=== PATIENT | male | born 1980 | race Caucasian/White ===

== ENCOUNTER 2017-08-02 12:54 | Emergency (ER) | payer MEDICAID ==
--- NOTE | 2017-08-02 13:08 | EDPHY ---
HPI/HX/ROS/PE/MDM Narrative: CHIEF COMPLAINT: Scrotal pain HPI: The patient is a 36-year-old male with a history of methamphetamine abuse. Approximately 1 month ago he was hospitalized for approximately 2 weeks at a hospital in [place] for epididymitis, UTI. The patient states he did not undergo any surgical procedures but did receive extensive IV antibiotics. He was ultimately discharged on a 21 day course of level floxacillin which he states he completed. Over the last few days, the patient notes recurrence of pain and swelling of his left hemiscrotum. He denies dysuria, fever, rash. REVIEW OF SYSTEMS: Aside from elements discussed in the HPI, a comprehensive 10-point review of systems was reviewed and is negative. PMH: History of methamphetamine abuse, epididymitis SOCIAL HISTORY: Patient recently moved here from [place]. History of methamphetamine abuse. Denies alcohol abuse. PHYSICAL EXAM: General:Patient is alert, in no acute distress. ENT:Eyes are normal to inspection. ENT inspection normal. Neck: Normal inspection. Full range of motion. Respiratory:No respiratory distress. Breath sounds normal bilaterally. Cardiovascular: Regular rate and rhythm. Strong peripheral pulses. Normal cap refill. Abdomen:The abdomen is nontender to palpation. There are no peritoneal signs. There are normal bowel sounds. Back: Normal to inspection. No tenderness to palpation. : Penis is normal to inspection. The left hemiscrotum is markedly swollen, tender and indurated. There is no discharge or skin breakdown. Right hemiscrotum is normal to inspection. Skin: Normal color. No rash. Warm and dry. Extremities: Normal appearance. Full range of motion. Neuro: Oriented x3. Normal motor function. Normal sensory function. ED Course: 36-year-old male presents with scrotal pain and left hemiscrotum swelling. Symptoms consistent with a recurrence of epididymitis, for which he was treated one month ago. Plan for testicular US, laboratory studies including CBC, chemistries, UA. 13:[address] Rivera, radiologist. US reveals diffuse heterogeneity of testicle and epididymis, consistent with epididym-orchitis, with scrotal wall thickening. No abscess or torsion. Reviewed laboratory studies. WBC elevated at 13,000. UA negative for UTI or hematuria. Labs otherwise largely unremarkable. Plan to administer 1gm IV ceftriaxone and 750mg IV Levaquin. Reassessed patient. He is well-appearing at this time. Vitals are stable. Plan to discharge home in good condition with prescription for Levaquin. He will follow up with his PCP or urology. Return precautions discussed. He is comfortable with this plan. MDM: This patient presents with recurrent left-sided epididymito-orchitis. I received faxed records from the hospital in [place] he was admitted to last month ( [facility] in [place], [place]) and these indicate that the patient presented to the ED in either late May or early June with dysuria and testicle pain and was found to be septic, with a WBC of 30k. US was negative for abscess. Urine grew out E.coli and blood cultures were negative. The patient was initially treated with vancomycin and Zosyn, which was eventually narrowed down to levofloxacin and diflucan. There were concerns that patient may have been using IV for meth use in hospital. The patient's symptoms seem to indicate recurrence of this same process and again there is no fluid collection or abscess. He appears quite well, with normal vital signs and eating fast food in his ER bed on re-evaluation, so I do not think he requires admission to the hospital at this time. I will re-start PO Levaquin, and have consulted our bottle caser to ensure that the patient will be able to follow-up closely with a PCP and Urology who we will refer him to. Patient understands and agrees with this plan. - Data Points Imaging Results: Imaging Impressions Testicular Ultrasound 08/02/17 13:10 Impression: 1. Heterogeneous echotexture involving the left testicle as well as heterogeneous appearance of the epididymis and thickening of the scrotal wall. There is also some increased color flow enhancement of the epididymis on the left. Consider underlying infectious or inflammatory process most likely. Consider follow-up ultrasound after treatment to confirm resolution. 2. Normal-appearing right testicle, epididymis, and scrotal sac. Findings discussed with Levy Elizabeth MD at 13:56 hour, 08/02/2017. Imaging: Discussed imaging studies w/ call center support representative Radiologist Laboratory Results: Laboratory Results 08/02/17 13:20 08/02/17 13:20 08/02/17 08/02/17 08/02/17 13:20 13:20 13:10 WBC 13.06 10^3/uL H 10^3/uL (3.80-9.50) RBC 5.03 10^6/uL 10^6/uL (4.40-6.38) Hgb 14.3 g/dL g/dL (13.7-17.5) Hct 42.9 % % (40.0-51.0) MCV 85.3 fL fL (81.5-99.8) MCH 28.4 pg pg (27.9-34.1) MCHC 33.3 g/dL g/dL (32.4-36.7) RDW 13.6 % % (11.5-15.2) Plt Count 319 10^3/uL 10^3/uL (150-400) MPV 9.9 fL fL (8.7-11.7) Neut % (Auto) 66.7 % % (39.3-74.2) Lymph % (Auto) 21.1 % % (15.0-45.0) [place] % (Auto) 7.8 % % (4.5-13.0) Eos % (Auto) 3.4 % % (0.6-7.6) Baso % (Auto) 0.8 % % (0.3-1.7) Nucleat RBC Rel Count 0.0 % % (0.0-0.2) Absolute Neuts (auto) 8.72 10^3/uL H 10^3/uL (1.70-6.50) Absolute Lymphs (auto) 2.75 10^3/uL 10^3/uL (1.00-3.00) Absolute Monos (auto) 1.02 10^3/uL H 10^3/uL (0.30-0.80) Absolute Eos (auto) 0.44 10^3/uL H 10^3/uL (0.03-0.40) Absolute Basos (auto) 0.10 10^3/uL 10^3/uL (0.02-0.10) Absolute Nucleated RBC 0.00 10^3/uL 10^3/uL (0-0.01) Immature Gran % 0.2 % % (0.0-1.1) Immature Gran # 0.03 10^3/uL 10^3/uL (0.00-0.10) Sodium 138 mEq/L mEq/L (135-145) Potassium 4.8 mEq/L mEq/L (3.5-5.2) Chloride 105 mEq/L mEq/L (97-110) Carbon Dioxide 21 mEq/l L mEq/l (22-31) Anion Gap 12 mEq/L mEq/L (8-16) BUN 16 mg/dL mg/dL (7-23) Creatinine 0.8 mg/dL mg/dL (0.7-1.3) Estimated GFR > 60 Glucose 94 mg/dL mg/dL (70-100) Calcium 8.8 mg/dL mg/dL (8.5-10.4) Urine Color PALE YELLOW Urine Appearance CLEAR Urine pH 7.0 (5.0-7.5) Ur Specific [place] 1.006 (1.002-1.030) Urine Protein NEGATIVE (NEGATIVE) Urine Ketones NEGATIVE (NEGATIVE) Urine Blood NEGATIVE (NEGATIVE) Urine Nitrate NEGATIVE (NEGATIVE) Urine Bilirubin NEGATIVE (NEGATIVE) Urine Urobilinogen NEGATIVE EU EU (0.2-1.0) Ur Leukocyte Esterase NEGATIVE (NEGATIVE) Urine Glucose NEGATIVE (NEGATIVE) Medications Given: Discontinued Medications Ceftriaxone Sodium/Dextrose (Rocephin 1 Gm (Premix)) 50 mls @ 100 mls/hr IV EDNOW ONE PRN Reason: Protocol Stop: 08/02/17 14:30 Last Admin: 08/02/17 14:06 Dose: 50 mls Levofloxacin/Dextrose (Levaquin 750 Mg (Premix)) 150 mls @ 100 mls/hr IV EDNOW ONE PRN Reason: Protocol Stop: 08/02/17 15:30 Last Admin: 08/02/17 14:18 Dose: 150 mls General Time Seen by Provider: 08/02/17 13:01 Initial Vital Signs: Initial Vital Signs Temperature (C) 36.7 C 08/02/17 12:57 Heart Rate 78 08/02/17 12:57 Respiratory Rate 18 08/02/17 12:57 Blood Pressure 125/87 H 08/02/17 12:57 O2 Sat (%) 98 08/02/17 12:57 O2 Delivery Mode Room Air Allergies/Adverse Reactions: No Known Allergies Allergy (Unverified 08/02/17 12:56) Home Medications: Medication Instructions Recorded Fluconazole 08/02/17 Hydrocodone-Acetamin 5-325 mg 08/02/17 Levofloxacin 08/02/17 levOFLOXACIN [levAQUIN (*)] 750 mg PO DAILY #21 tab 08/02/17 Departure - Departure Disposition: Home, Routine, Self-Care Clinical Impression: Epididymo-orchitis without abscess Condition: Good Instructions: Epididymo-Orchitis (ED), Scrotal Pain (ED) Additional Instructions: 1. Take Levaquin as prescribed. It is important to finish your entire course of antibiotics even if you are feeling better. 2. Follow up with a primary care provider or with urology for re-evaluation in 2 -3 days. 3. Return to the emergency department for fever, worsening pain or swelling, or other worsening of condition. Referrals: NONE *PRIMARY CARE P,. [Primary Care Provider] - As per Instructions Benitez Wesley MD [Medical Doctor] - As per Instructions Yuri Rajput MD [[facility] Primary Care Provider] - As per Instructions Prescriptions: levOFLOXACIN [levAQUIN (*)] 750 mg PO DAILY #21 tab Report Scribed for: Levy Elizabeth Report Scribed by: Renea Sung Date of Report: 08/02/17 Time of Report: 13:33 Physician Review and Approval Statement: Portions of this note were transcribed by an ED scribe. I personally performed the history, physical exam, and medical decision making; and confirm the accuracy of the information in the transcribed note.
[2017-08-02 13:34] LABS: PLATELET COUNT 319 10^3/uL (150-400)
[2017-08-02 15:22] VITALS: BP 130/84
--- NOTE | 2017-08-02 15:47 | ASMTCMCOM ---
CM Note CM Note Notes: 08/02/2017 Case Management Note Met w/pt and girlfriend Saba Mai [phone]. They moved to [place] recently from [place] with their 5 y.o son and Saba's sister Toya Germain. Pt and family are residing in [place] with Saba's father. Pt fine sanderMD Petrona Fish [address] [place] [address] Pt plans to follow up with providers at that the above location. Provided information for [facility] and will provide face sheet for referral follow up on Thursday by [facility]. Pt declined assistance in setting appointments. There are no further case management needs. Date Signed: 08/02/2017 03:46 PM Electronically Signed By:Rea Spencer RN
== END 2017-08-02 15:56 | disposition home or self-care (01) ==
DX: N45.3 Epididymo-orchitis (principal)
CPT/HCPCS: 96365; J0696; J1956

== ENCOUNTER → 2017-08-28 | Outpatient (CLI) | payer MEDICAID | LOC: FIMAGING 11:12 | PROVIDERS: ATTEND Physician Assistant Medical | DX: N45.2 Orchitis (principal) ==

== ENCOUNTER 2017-10-01 05:26 | Observation (INO) | payer MEDICAID ==
--- NOTE | 2017-09-30 15:10 | GHP ---
[f rep st] PREOP HISTORY AND PHYSICAL ADMISSION DIAGNOSIS: Left testicular abnormality. HISTORY OF PRESENT ILLNESS: By history, this 36-year-old gentleman has had abnormal left testicular swelling and initially was felt to have an infection when he was in [place] and was treated as such. He has had urologic history of having E coli UTI with orchitis and sepsis that was treated in May of 2017. Imaging has been reviewed and he still has a solid mass in the testicle. We recommended ex cision. He is admitted for a left radical inguinal orchiectomy. PAST MEDICAL HISTORY: Orchitis, skin infections. PAST SURGICAL HISTORY: None. MEDICATIONS: Have been antibiotics in the past. ALLERGIES: No known drug allergies. FAMILY HISTORY: Positive for hypertension and diabetes. SOCIAL HISTORY: Moderate alcohol consumption. He is unemployed. Smokes daily and has had methamphe tamine abuse in the past. REVIEW OF SYSTEMS: Negative cardiac, respiratory, GI, and endocrine. PHYSICAL EXAMINATION: VITAL SIGNS: Stable. Blood pressure in the office has been 127/78, O2 satura tion on room air 96%, heart rate 82, respirations 16. HEENT: Normal. CHEST: Clear. HEART: Regula r rate and rhythm. ABDOMEN: Normal. No organomegaly, rebound or guarding. : Scrotal exam, righ t testicle normal, left testicle is abnormal. LABORATORY DATA: His laboratory testing has shown his hCG less than 0.6. Alpha fetoprotein 1.87. L DH 412. At the present time, he is admitted for the above procedure. /[id number]/MODL
[2017-10-01] MEDS ORDERED: LR 1,000 ML IV ONE (06:02)
[2017-10-01] MEDS ORDERED: BUPIVACAINE 0.25% 30 ML SDV ONE (06:37)
--- NOTE | 2017-10-01 06:54 | PDANEPAE ---
ANE History of Present Illness 36 year old male for radical orchiectomy. ANE Past Medical History - Cardiovascular History Hx Hypertension: No Hx Arrhythmias: No Hx Chest Pain: No Hx Coronary Artery / Peripheral Vascular Disease: No Hx CHF / Valvular Disease: No Hx Palpitations: No - Pulmonary History Hx COPD: No Hx Asthma/Reactive Airway Disease: No Hx Recent Upper Respiratory Infection: No Hx Oxygen in Use at Home: No Hx Sleep Apnea: No Sleep Apnea Screening Result - Last Documented: Negative - Neurologic History Hx Cerebrovascular Accident: No Hx Seizures: No Hx Dementia: No - Endocrine History Hx Diabetes: No Obesity: no - Renal History Hx Renal Disorders: No - Liver History Hx Hepatic Disorders: No - Neurological & Psychiatric Hx Hx Neurological and Psychiatric Disorders: No - Cancer History Hx Cancer: No - Congenital Disorder History Hx Congenital Disorders: No - GI History Hx Gastrointestinal Disorders: No - Other Health History Other Health History: none - Chronic Pain History Chronic Pain: Yes (lower back) - Surgical History Prior Surgeries: none ANE Review of Systems Review of systems is: negative Review of Systems: - Exercise capacity Exercise capacity: >=4 METS METS (RN): 4 METS ANE Patient History - Allergies Allergies/Adverse Reactions: No Known Allergies Allergy (Unverified 08/02/17 12:56) - Home Medications Home medications: home medication list seen and reviewed Home Medications: Fluconazole 08/02/17 [Last Taken 1 Month Ago ~09/01/17] Hydrocodone-Acetamin 5-325 mg 08/02/17 [Last Taken 1 Month Ago ~09/01/17] Levofloxacin 08/02/17 [Last Taken 1 Month Ago ~09/01/17] - NPO status NPO Status: no food or drink >8 hours NPO Since - Liquids (Date): 09/30/17 NPO Since - Liquids (Time): 15:30 NPO Since - Solids (Date): 09/30/17 NPO Since - Solids (Time): 15:30 - Anes Hx Anes Hx: no prior problems - Smoking Hx Smoking Status: Heavy smoker Marijuana use: No - Alcohol Use Alcohol Use: None - Family Anes Hx Family Anes Hx: neg - N/A Family Hx Anesthesia Complications: none ANE Labs/Vital Signs - Vital Signs Vital Signs: reviewed preoperatively; see RN documention for details Blood Pressure: 99/64 Heart Rate: 68 Respiratory Rate: 14 O2 Sat (%): 94 Height: 172.72 cm Weight: 81.647 kg ANE Physical Exam - Airway Neck exam: FROM Mallampati Score: Class 2 Mouth exam: normal dental/mouth exam, dobbs Mouth image: 1 - Abnormal 2 - Total of 8 capped teeth - Pulmonary Pulmonary: no respiratory distress - Cardiovascular Cardiovascular: regular rate and rhythym - ASA Status ASA Status: II ANE Anesthesia Plan Anesthesia Plan: GA w LMA Total IV Anesthesia: No
[2017-10-01] MEDS ORDERED: MIDAZOLAM 2 MG/2 ML VIAL IVP ONE (07:01)
[2017-10-01] MEDS ORDERED: ceFAZolin 2 GM/DEXTROSE 100 ML IV ONE (07:03)
--- NOTE | 2017-10-01 07:04 | PDHPUP ---
History & Physical Update H&P update statement: This history and physical update is based on an assessment of the patient which was completed after admission or registration (within 24 hours), but prior to the surgery/procedure. H&P update: H&P reviewed & patient examined, no change in patient's condition since H&P completed
[2017-10-01] MEDS ORDERED: PROPOFOL 200 MG/20 ML VIAL ONE (07:08)
[2017-10-01] MEDS ORDERED: ROCURONIUM 50 MG/5 ML VIAL ONE (07:09)
[2017-10-01] MEDS ORDERED: LIDOCAINE 2% 5 ML SDV ONE (07:09)
[2017-10-01] MEDS ORDERED: fentaNYL 100 MCG/2 ML INJ ONE ×3 (07:09→12:03)
[2017-10-01] MEDS ORDERED: SUGAMMADEX SODIUM 200 MG/2 ML VIAL IVP ONE (07:59)
[2017-10-01] MEDS ORDERED: ONDANSETRON 4 MG/2 ML VIAL ONE (07:59)
[2017-10-01] MEDS ORDERED: DEXAMETHASONE 4 MG/ML VIAL ONE (07:59)
--- NOTE | 2017-10-01 08:35 | GOP ---
[f rep st] OPERATIVE REPORT DATE OF OPERATION: SURGEON: Benitez Wesley MD PREOPERATIVE DIAGNOSIS: Left testicular mass. POSTOPERATIVE DIAGNOSIS: Left testicular mass. PROCEDURE PERFORMED: Left radical inguinal orchiectomy. FINDINGS: inflammed testis and tunics ANESTHESIA: general SPECIMENS: Testicle, spermatic cord. INDICATIONS: This is a 36-year-old gentleman who had had a left testicular mass by history and had a presumed severe orchitis in May. The mass has not resolved, and on ultrasound, it looks abnormal with no normal parenchyma, and I have recommend he have an inguinal orchiectomy. Preoperative tumor markers have been normal. Discussed that with him, and indications and complications discussed. DESCRIPTION OF PROCEDURE: He underwent general anesthesia and was prepped and draped in normal sterile fashion. After appropriate time-out, a left inguinal incision was made and carried down to where I could identify the spermatic cord. There was a dense inflammatory reaction around all the tunics and the spermatic cord up to where it entered the internal and external rings. I was able to dissect this out and through entirety. It had been attached to an area of the skin. So, a 1 cm part of the scrotal skin was excised with this lesion, and then the spermatic cord was double ligated with 0 Vicryl suture ligature to provide hemostasis. Really could not separate out the vas deferens from the vasculature, but I did identify the vas deferens and the vessels. Then at that point, the testicle was removed and then hemostasis via ties and electrocautery. I elected to place a Kleber drain. It was brought out through the small skin incision window that had made during the dissection. It was sewn in place with Vicryl and was placed in through the operative site, and then, the subcutaneous tissue with fat tissue was approximated with 0 Vicryl and skin jeff placed. He tolerated the procedure well and will be discharged home to see me in 1 week for staple removal. Specimen sent to Pathology. No complications. COMPLICATIONS: None. /[id number]/MODL MTDD
[2017-10-01] MEDS ORDERED: HYDROmorphONE/DILAUDID 1 MG/ML INJ IVP PRN ×2 (09:08→11:40)
[2017-10-01] MEDS ORDERED: PHENYLEPHRINE HCL 100 MCG/ML SYR IVP PRN (09:08)
[2017-10-01] MEDS ORDERED: ONDANSETRON 4 MG/2 ML VIAL IVP PRN ×2 (09:08→11:40)
[2017-10-01] MEDS ORDERED: NALOXONE HCL 0.4 MG/ML INJ IVP PRN (09:08)
[2017-10-01] MEDS ORDERED: LR 500 ML IV PRN (09:08)
[2017-10-01] MEDS ORDERED: HYDROCODONE/APAP 5/325 TAB PO PRN (09:08)
[2017-10-01] MEDS: fentaNYL 100 MCG/2 ML INJ IVP PRN ×5 (09:10→12:50)
[2017-10-01] MEDS ORDERED: PROPOFOL/EMULSION 500 MG/50 ML BOTTLE IV ONE (10:11)
[2017-10-01] MEDS ORDERED: ALBUMIN 5% 250 ML BOTTLE IV ONE ×2 (10:23→10:46)
[2017-10-01 11:18] LABS: PLATELET COUNT 183 10^3/uL (150-400)
[2017-10-01 11:30] LABS: INR 1.37 (0.83-1.16)
[2017-10-01] MEDS ORDERED: ZOLPIDEM TARTRATE 5 MG TAB PO PRN (11:40)
[2017-10-01] MEDS ORDERED: ONDANSETRON DISINTEGRATING 4 MG TAB PO PRN (11:40)
[2017-10-01] MEDS ORDERED: ACETAMINOPHEN 325 MG TAB PO PRN (11:40)
[2017-10-01] MEDS ORDERED: D5W 1/2 NS 1,000 ML IV SCH ×2 (11:45→17:15)
--- NOTE | 2017-10-01 11:47 | POSTOPPROG ---
Post Op Note Date of Operation: 10/01/17 Surgeon: Benitez Wesley Anesthesia: GET(General Endotracheal) Pre-op Diagnosis: scrotal hematoma Post-op Diagnosis: same Indication: same Procedure: drain and explore scrotal hematoma Inf/Abcess present in the surg proc area at time of surgery?: No EBL: 500-1000 Drains: Kleber Specimen(s): dictated
--- NOTE | 2017-10-01 11:57 | GOP ---
[f rep st] OPERATIVE REPORT DATE OF OPERATION: 10/01/2017 SURGEON: Benitez Wesley MD PREOPERATIVE DIAGNOSIS: Scrotal/inguinal hematoma. POSTOPERATIVE DIAGNOSIS: Scrotal/inguinal hematoma. PROCEDURE PERFORMED: Re-exploration of the scrotum and evacuation of clots. FINDINGS: ESTIMATED BLOOD LOSS: There was 500 cc of clot when I evacuated. DESCRIPTION OF PROCEDURE: He was prepped and draped in normal sterile fashion, took out his jeff, the drain, opened the wound and evacuated the clot and then at that point, I strategically explored the entire scrotum. I did make a scrotal incision so I could actually get into the total confines of the scrotum. He had some small vessels that were bleeding at the base of the scrotum, which were li gated. Then multiple areas that could be vessels were ligated and then hemostasis via electrocautery . At the end of the exploration there was no welling or bleeding of the bladder. I used thrombin 2 g were utilized and I placed that on the inside of the scrotum, inguinal space and waited 10 minutes and then reinspected and there was no welling or bleeding noted. He did have some mild oozing, but t here was nothing that significantly stained any of the 4x4s. At that point, I closed the inguinal sp axel with a running 0 Vicryl and 3-0 Vicryl to close the space in the scrotum. Skin was approxim ated with 3-0 chromic on the scrotum. Drain was sewn in place with a 3-0 chromic, which went into th e scrotum up into the inguinal space. Then the fat was closed to the inguinal canal and then jeff were used to close the skin and a pressure dressing was placed on the scrotum and the inguinal space . He will be admitted overnight for observation just because of the lability of his blood pressure a nd pain control and postoperative hematoma. /[id number]/MODL
[2017-10-01] MEDS ORDERED: OXYCODONE/APAP 5/325 TAB ONE (12:14)
[2017-10-01] MEDS: OXYCODONE/APAP 5/325 TAB PO PRN ×4 (12:15→22:17)
--- NOTE | 2017-10-01 13:23 | POSTANESTH ---
Post Anesthetic Evaluation Cardiovascular Status: Tx Hyper/Hypo-tension Respiratory Status: Normal, Stable, Similar to Pre-op Cond. Level of Consciousness/Mental Status: Can Participate in Eval, Alert and Oriented Pain Control: Adequate, Prn Tx Ordered Nausea/Vomiting Control: Adequate, Prn Tx Ordered Complications Possibly Related to Anesthesia: None Noted (Patient bleeding in PACU. Had to go back to OR quickly for re-exploration. This is 1st post-op evaluation following orchiectomy.)
--- NOTE | 2017-10-01 13:25 | PDANEPAE ---
ANE History of Present Illness 36 year old male for take-back surgery for bleeding s/p orchiectomy. ANE Past Medical History - Cardiovascular History Hx Hypertension: No Hx Arrhythmias: No Hx Chest Pain: No Hx Coronary Artery / Peripheral Vascular Disease: No Hx CHF / Valvular Disease: No Hx Palpitations: No - Pulmonary History Hx COPD: No Hx Asthma/Reactive Airway Disease: No Hx Recent Upper Respiratory Infection: No Hx Oxygen in Use at Home: No Hx Sleep Apnea: No Sleep Apnea Screening Result - Last Documented: Negative - Neurologic History Hx Cerebrovascular Accident: No Hx Seizures: No Hx Dementia: No - Endocrine History Hx Diabetes: No Obesity: no - Renal History Hx Renal Disorders: No - Liver History Hx Hepatic Disorders: No - Neurological & Psychiatric Hx Hx Neurological and Psychiatric Disorders: No - Cancer History Hx Cancer: No - Congenital Disorder History Hx Congenital Disorders: No - GI History Hx Gastrointestinal Disorders: No - Other Health History Other Health History: none - Chronic Pain History Chronic Pain: Yes (lower back) - Surgical History Prior Surgeries: none ANE Review of Systems Review of systems is: negative Review of Systems: - Exercise capacity Exercise capacity: >=4 METS METS (RN): 4 METS ANE Patient History - Allergies Allergies/Adverse Reactions: No Known Allergies Allergy (Unverified 08/02/17 12:56) - Home Medications Home medications: home medication list seen and reviewed Home Medications: Fluconazole 08/02/17 [Last Taken 1 Month Ago ~09/01/17] Hydrocodone-Acetamin 5-325 mg 08/02/17 [Last Taken 1 Month Ago ~09/01/17] Levofloxacin 08/02/17 [Last Taken 1 Month Ago ~09/01/17] - NPO status NPO Status: no food or drink >8 hours NPO Since - Liquids (Date): 09/30/17 NPO Since - Liquids (Time): 15:30 NPO Since - Solids (Date): 09/30/17 NPO Since - Solids (Time): 15:30 - Anes Hx Anes Hx: no prior problems - Smoking Hx Smoking Status: Heavy smoker - Alcohol Use Alcohol Use: None - Family Anes Hx Family Hx Anesthesia Complications: none ANE Labs/Vital Signs - Labs Result Diagrams: 10/01/17 11:00 - Vital Signs Vital Signs: reviewed preoperatively; see RN documention for details Blood Pressure: 108/81 Heart Rate: 80 Respiratory Rate: 18 O2 Sat (%): 93 Height: 172.72 cm Weight: 81.647 kg ANE Physical Exam - Airway Neck exam: FROM Mallampati Score: Class 2 Mouth exam: normal dental/mouth exam - Pulmonary Pulmonary: no respiratory distress - Cardiovascular Cardiovascular: regular rate and rhythym - ASA Status ASA Status: II ANE Anesthesia Plan Anesthesia Plan: general endotracheal anesthesia Total IV Anesthesia: No Urgent/Emergent Case: Anes eval completed preop but documented later for safe timely pt care (Documenting pre-op for "take-back" surgery due to bleeding/ hematoma following left orchiectomy)
--- NOTE | 2017-10-01 13:26 | POSTANESTH ---
Post Anesthetic Evaluation Cardiovascular Status: Normal, Stable, Similar to Pre-Op Cond Respiratory Status: Normal, Stable, Similar to Pre-op Cond. Level of Consciousness/Mental Status: Can Participate in Eval, Alert and Oriented Pain Control: Adequate, Prn Tx Ordered Nausea/Vomiting Control: Adequate, Prn Tx Ordered Complications Possibly Related to Anesthesia: None Noted (Hgb = 9.3. Slightly elevated INR, but T.E.G. reassuring. Patient doing well in PACU. Will be admitted overnight.)
[2017-10-02 04:31] LABS: PLATELET COUNT 220 10^3/uL (150-400)
[2017-10-02] MEDS: OXYCODONE/APAP 5/325 TAB PO PRN (06:41)
--- NOTE | 2017-10-02 07:06 | SOAPPROG ---
SOAP Progress Note Assessment/Plan: Assessment: testis mass, scrotal hematoma POD # 1 dressing off and doing well, path pending Plan: dc home, see Thursday for drain removal 10/02/17 09:06 Subjective: ok and minimal pain Objective: Vital Signs Temp Pulse Resp BP Pulse Ox 36.9 C 93 16 96/72 L 95 10/02/17 04:00 10/02/17 06:32 10/02/17 04:00 10/02/17 06:32 10/02/17 04:00 Laboratory Results 10/02/17 04:00 10/02/17 04:00 10/01/17 10/02/17 10/03/17 05:59 05:59 05:59 Intake Total 6358 624 Output Total 3825 375 Balance 2533 249 PT 17.0 SEC (12.0-15.0) H 10/01/17 11:00 INR 1.37 (0.83-1.16) H 10/01/17 11:00 Physical Exam - Physical Exam General Appearance: alert Neck: supple Respiratory: No respiratory distress Cardiac/Chest: regular rate, rhythm Abdomen: soft Male Genitalia: other (post op swelling minimal, shaft bruising on left of penis as expected post op) Back: No CVA tenderness Skin: warm/dry Extremities: No calf tenderness, No Chilo's sign Neuro/Psych: alert, oriented x 3 ICD10 Worksheet Patient Problems: Problems Problem Status Onset Testis mass Acute Testis mass Acute - ICD10 Problem Qualifiers (1) Testis mass (2) Testis mass
[2017-10-02 08:25] VITALS: BP 101/65
--- NOTE | 2017-10-02 09:17 | ASMTLACE ---
LACE Length of stay for Answers: Less than 1 day current admission Comorbidities - select Answers: Opioid dependence all that apply / Chronic pain # of Emergency department Answers: 1-2 visits in the last 6 months Social determinants Answers: History of substance abuse (ETOH, street drugs, prescription drugs, etc.) Score: 8 Date Signed: 10/02/2017 09:16 AM Electronically Signed By:Anna Marie Alejandro RN
--- NOTE | 2017-10-02 09:19 | ASMTCMCOM ---
CM Note CM Note Notes: Chart reviewed. Patient has been medically cleared for discharge to home. No needs identified CM available should needs arise. Plan: Home independently. Date Signed: 10/02/2017 09:19 AM Electronically Signed By:Anna Marie Alejandro RN
--- NOTE | 2017-10-02 09:32 | GDS ---
[f rep st] DISCHARGE SUMMARY ADMISSION DIAGNOSIS: Left testicular mass. DISCHARGE DIAGNOSIS: Left testicular mass. PROCEDURE DURING HOSPITALIZATION: Left inguinal orchiectomy and postop drainage of hematoma. Gentle man underwent general anesthesia and had the orchiectomy and then postop he developed a hematoma and was taken back to surgery later today during the hematoma and try to provide hemostasis. HOSPITAL COURSE: He was admitted overnight and on discharge, his hematocrit is 28.8, white count 13. 9, platelet count 220. Pathology is pending and he will see me in the office on Thursday for drain rem oval and discussion of pathology if it is available at that time. /[id number]/MODL
== END 2017-10-02 10:21 | disposition home or self-care (01) ==
LOC: FSGY 05:26 → F3E 11:39 → F1N 12:58
PROVIDERS: ADMIT Specialist; ATTEND Specialist
PROC: 0V9500Z Drainage of Scrotum with Drainage Device, Open Approach (ICD-10-PCS; 2017-10-01)
PROC: 0VTB0ZZ Resection of Left Testis, Open Approach (ICD-10-PCS; principal; 2017-10-01 07:15)
DX: N50.9 Disorder of male genital organs, unspecified (principal); N99.840 Postprocedural hematoma of a genitourinary system organ or structure following a genitourinary system procedure; F17.210 Nicotine dependence, cigarettes, uncomplicated; I95.9 Hypotension, unspecified; Z87.440 Personal history of urinary (tract) infections
CPT/HCPCS: 54530; 54700; G0378; J0690; J1100; J2250; J2405; J2704; J3010; P9041

== ENCOUNTER 2018-02-07 23:19 | Emergency (ER) | payer MEDICAID ==
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
[2018-02-07] MEDS ORDERED: TDAP ADULT 0.5 ML INJ (BOOSTRIX) IM ONE (23:38)
[2018-02-08 00:45] VITALS: BP 106/77
== END 2018-02-08 00:30 | disposition home or self-care (01) ==
LOC: EDUNIT#
DX: S09.90XA Unspecified injury of head, initial encounter (principal); F10.920 Alcohol use, unspecified with intoxication, uncomplicated; Z23 Encounter for immunization; Y04.2XXA Assault by strike against or bumped into by another person, initial encounter; Y92.89 Other specified places as the place of occurrence of the external cause; Y93.9 Activity, unspecified